=== PATIENT | male | born 1945 | race Caucasian/White ===

== ENCOUNTER 2020-06-27 10:05 | Outpatient (CLI) | payer MEDICARE, BC, SELFPAY ==
--- NOTE | 2020-06-25 10:35 | DI.RAD_ITS ---
EXAM: XR CLAVICLE RT CLINICAL HISTORY: POLYARTHRITIS M13.0, DEFORMITY STERNOCLAVICULAR JOINT TECHNIQUE: 2D digital imaging was performed. COMPARISON: CR XR WRIST LT COMPLETE from 06/25/2020 FINDINGS: BONES: No acute fracture is present. No bony destructive lesion is seen.There is spurring from the ti p of the acromion. JOINTS: No dislocation present. There is mild widening of the AC joint. Coracoclavicular distance i s normal. SOFT TISSUE: Normal IMPRESSION: AC joint widening. No bony erosions. DATA REPOSITORY: RADIATION DOSE DELIVERED:
--- NOTE | 2020-06-25 10:43 | DI.RAD_ITS ---
EXAM: XR WRIST LT COMPLETE CLINICAL HISTORY: POLYARTHRITIS M13.0. TECHNIQUE: 2D digital imaging was performed. COMPARISON: CR LEFT HAND COMPLETE from 10/22/2014 FINDINGS: BONES: No acute fracture is present. No bony destructive lesion is seen. JOINTS: There is severe narrowing of the radiocarpal joint. Sub subchondral cysts are noted in the s caphoid and lunate.. Degenerative changes are also seen at the 1st carpal metacarpal joint. SOFT TISSUE: There is marked posterior soft tissue swelling at the level of the carpal region. 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 DATA REPOSITORY: RADIATION DOSE DELIVERED:
== END 2020-06-27 10:25 ==
PROVIDERS: PCP Family Medicine; Visit Provider Family Medicine
DX: M19.032 Primary osteoarthritis, left wrist (principal); M18.9 Osteoarthritis of first carpometacarpal joint, unspecified; M95.8 Other specified acquired deformities of musculoskeletal system
CPT/HCPCS: 73000; 73110

== ENCOUNTER → 2020-09-03 14:54 | Outpatient (BNVA) | payer MEDICARE, BC, SELFPAY | PROVIDERS: PCP Family Medicine; Referring Provider Family Medicine; Visit Provider Student in an Organized Health Care Education/Training Program | DX: M18.12 Unilateral primary osteoarthritis of first carpometacarpal joint, left hand (principal); M19.132 Post-traumatic osteoarthritis, left wrist | CPT/HCPCS: 99203 ==

== ENCOUNTER 2020-10-25 10:49 | Outpatient (REF) | payer MEDICARE, BC, SELFPAY ==
--- NOTE | 2020-10-25 10:10 | PAPNONF_PTH ---
PATIENT: Stephan Schrader LOC: [facility] U#:[id number] AGE/SX: 75/M ROOM: RE10/25/[address]: Onesimo Edward MD : 1945 BED: DIS: 10/25/2020 SPEC #: [id number] RECD: 10/25/20 18:05 STATUS: ALEXANDRE REQ #: [id number] MARTIN: 10/25/20 10:[address]: Onesimo Edward DEPT: [facility] Cytology RECD BY: Mae Paiz ENTERED: 10/25/20 18:05 SP TYPE: ROSEMARIE GARDUNO DR: Stephanie Reyna Tissues: 1 - BODY FLUID CYTO-FINE NEEDLE ASPIRATE-[facility] Procedures: BODY FLUID CYTO-FINE NEEDLE ASPIRATE-[facility] Comments: [id number]
== END 2020-10-25 10:50 | disposition home or self-care (01) ==
LOC: LBN 10:49
PROVIDERS: PCP Family Medicine; Visit Provider Otolaryngology
DX: K11.8 Other diseases of salivary glands (principal)
CPT/HCPCS: 88104

== ENCOUNTER 2020-11-08 02:36 | Outpatient (CLI) | payer MEDICARE, BC, SELFPAY ==
--- NOTE | 2020-11-08 | DI.US_ITS ---
EXAM: US SOFT TISSUE HEAD OR NECK CLINICAL HISTORY: MASS RT PAROTID GLAND, K11.8. TECHNIQUE: Ultrasound was performed using standard protocol. COMPARISON: No exams were available for comparison FINDINGS: Sonographic assessment utilizing grayscale and color Doppler imaging was performed and targeted to th e area of clinical concern. There is a 2.3 x 1.2 x 1.7 cm complex cystic lesion within the right parotid gland. The lesion conta ins internal septations in the nodular solid component along the wall which measures 0.7 x 0.4 cm. T here does appear to be a minimal amount of internal blood flow in the solid component. Several sonog raphically benign-appearing lymph nodes are seen within the parotid gland. The largest measures 1 x 0.5 x 0.7 cm. IMPRESSION: 2.3 x 1.2 x 1.7 cm complex cystic lesion in the right parotid gland. A CT scan of the neck with cont rast is recommended for further evaluation. DATA REPOSITORY:
== END 2020-11-08 02:56 ==
PROVIDERS: PCP Family Medicine; Visit Provider Otolaryngology
DX: K11.8 Other diseases of salivary glands (principal)
CPT/HCPCS: 76536

== ENCOUNTER 2021-08-19 11:15 | Outpatient (CLI) | payer MEDICARE, BC, SELFPAY ==
--- NOTE | 2021-08-19 11:00 | DI.RAD_ITS ---
Exam(s) XR KNEE RT 1V EXAM: XR KNEE RT 1V CLINICAL HISTORY: preop. TECHNIQUE: 2D digital imaging was performed. COMPARISON: No exams were available for comparison FINDINGS: No fracture evident on this lateral view. Fxit-fz-[id number] narrowing of the medial compartment noted. S mall joint effusion evident. Bone density otherwise normal. IMPRESSION: DATA REPOSITORY: RADIATION DOSE DELIVERED:
--- NOTE | 2021-08-19 11:00 | DI.RAD_ITS ---
Exam(s) XR STANDING ALIGNMENT EXAM: XR STANDING ALIGNMENT CLINICAL HISTORY: arthritis right knee. TECHNIQUE: 2D digital imaging was performed. COMPARISON: No exams were available for comparison FINDINGS: There is advanced narrowing of the medial compartment of the right knee with [id number]-[id number] narrowing. Relative preservation of the lateral compartment. Opposite-left knee appears unremarkable as do the hips and ankles. No osseous lesions. Bone density is age-appropriate. IMPRESSION: Advanced narrowing of the medial compartment of the right knee. DATA REPOSITORY: RADIATION DOSE DELIVERED:
== END 2021-08-19 11:16 | disposition home or self-care (01) ==
LOC: DIORS 11:15
PROVIDERS: PCP Family Medicine; Referring Provider Family Medicine; Visit Provider Student in an Organized Health Care Education/Training Program
DX: M17.11 Unilateral primary osteoarthritis, right knee (principal)
CPT/HCPCS: 99214; 73560; 77073

== ENCOUNTER → 2021-08-26 13:32 | Outpatient (BNVA) | payer MEDICARE, BC, SELFPAY | PROVIDERS: PCP Family Medicine; Referring Provider Family Medicine; Visit Provider Student in an Organized Health Care Education/Training Program | DX: R69 Illness, unspecified (principal); M17.11 Unilateral primary osteoarthritis, right knee | CPT/HCPCS: 20610; J1040 ==

== ENCOUNTER → 2021-11-27 12:47 | Outpatient (BNVA) | payer MEDICARE, BC, SELFPAY | PROVIDERS: PCP Family Medicine; Referring Provider Family Medicine | DX: M17.11 Unilateral primary osteoarthritis, right knee (principal); M70.52 Other bursitis of knee, left knee ==

== ENCOUNTER 2021-12-02 03:01 | Outpatient (CLI) | payer MEDICARE, BC, SELFPAY ==
[2021-12-02 10:36] LABS: Source Nasal/Nares
[2021-12-02 13:07] LABS: COVID-19 PCR Negative (Negative)
== END 2021-12-02 03:02 | disposition home or self-care (01) ==
LOC: LBO 03:02
PROVIDERS: PCP Family Medicine; Visit Provider Student in an Organized Health Care Education/Training Program
DX: Z20.822 Contact with and (suspected) exposure to COVID-19 (principal); Z01.818 Encounter for other preprocedural examination
CPT/HCPCS: 36415; 80048; 85027; 87635; U0005

== ENCOUNTER 2021-12-02 03:40 | Outpatient (CLI) | payer MEDICARE, BC, SELFPAY ==
[2021-12-02 09:06] LABS: HCT 43.3 % (40.0-50.0); HGB 14.2 g/dL (13.5-17.5); MCH 30.7 pg (27.0-33.0); MCHC 32.8 % (32.0-36.0); MCV 93.7 fL (80-95); MPV 8.3 fL (8.0-11.0); Platelet Count 208 10^3/uL (130-400); RBC 4.62 10^6/uL (4.36-5.78); RDW 12.7 % (11.8-14.1); RDW-SD 43.6 fL; WBC 5.96 10^3/uL (4.4-10.8)
[2021-12-02 10:01] LABS: Anion Gap 4.4 mmol/L (3-11); BUN 18 mg/dL (7-18); CO2 28.6 mmol/L (21.0-32.0); CREATININE 0.9 mg/dL (0.70-1.30); Calcium 8.9 mg/dL (8.5-10.1); Chloride 107 mmol/L (98-107); Glucose 86 mg/dL (74-106); Potassium 4.6 mmol/L (3.5-5.1); Sodium 140 mmol/L (136-145)
== END 2021-12-02 03:41 | disposition home or self-care (01) ==
LOC: LBO 03:41
PROVIDERS: PCP Family Medicine; Visit Provider Student in an Organized Health Care Education/Training Program
DX: M25.561 Pain in right knee (principal); M17.11 Unilateral primary osteoarthritis, right knee; Z01.818 Encounter for other preprocedural examination; Z01.812 Encounter for preprocedural laboratory examination
CPT/HCPCS: 36415; 80048; 85027

== ENCOUNTER 2021-12-04 07:30 | Day surgery (SDC) | payer MEDICARE, BC, SELFPAY ==
[2021-12-04] VITALS (9 sets, daily range): BP systolic 102–151; BP diastolic 58–87; PULSE 52–68; RESP 13–18; TEMP 36.1–36.9; O2SAT 95–100; BMI 25.5
--- NOTE | 2021-12-04 07:33 | PDOC.DSDIS_ITS ---
Discharge Plan Disposition Patient Disposition: HOME Condition: Good Discharge Details Reason For Visit: R TKA Attending Provider: Simón Santiago Primary Care Provider: Stephanie eRyna Home Meds and New Rx's Prescriptions: New celecoxib 200 mg capsule 200 mg PO BID Qty: 60 0RF aspirin 81 mg tablet,delayed release (DR/EC) 81 mg PO BID Qty: 60 0RF acetaminophen 500 mg tablet 1,000 mg PO TID Qty: 90 3RF pantoprazole 40 mg tablet,delayed release (DR/EC) 40 mg PO DAILY Qty: 30 0RF oxycodone 5 mg tablet 5 mg PO Q4H MDD 6 tabs PRN (Reason: pain) Qty: 20 0RF Continued tamsulosin [Flomax] 0.4 mg capsule 0.4 mg PO BID 0RF Discharge Instructions Additional Instructions: Total Knee Discharge Instructions Activity: The most important activity is to walk. You should try to take short walks a few times a day. It is important that when resting you work on keeping the knee straight. Avoid putting a pillow behind the knee as this will encourage flexion. Work on range of motion exercises as provided by Physical Therapy. If you have the [employer] Water bike coming, this will be your primary tool for exercise after the knee replacement. You should use it and follow the directions for the knee. Utilize the other exercises sparingly based on your symptoms. - Start outpatient physical therapy within 2 weeks. - You should wear the DELICIA hose on both legs for 2 weeks. You may remove these at night. You may also use any compression sock in place of the DELICIA hose. - Utilize [employer] to review exercises, see videos on exercises and o btain basic information pertaining to your surgery and your recovery. Dressing: Remove the Stevie wrap by 2 days after your surgery and put on the DELICIA stocking given to you from the hospital. Keep the surgical dressing (underneath the STEVIE wrap) in place for at least one week. After the first week it may be removed and replaced with light gauze and tape or nothing. The wound and dressing may get wet after 3 days but avoid soaking the dressing or otherwise it will need to be changed. Many people prefer covering the dressing with cling wrap (saran wrap) to minimize it from getting soaked. If it gets wet, just pat dry. If it starts to peel off then it will need to be changed. Medications: - You should take Tylenol and anti-inflammatory Celebrex as your primary pain control medications. If the Celebrex is too expensive or not covered, please call the office for another alternative (Advil/Ibuprofen or Naproxen/Aleve) - You have been prescribed a stronger pain medication Oxycodone for breakthrough pain, take as needed as prescribed. - You have also been prescribed a stomach acid reduction agent Pantoprozole to help reduce stomach acid and reflux. - You will be taking [Aspirin 81mg twice a day] for DVT prevention unless instructed otherwise. - If you have constipation you should take Colace or Miralax (both [id number]). It takes most people 3-4 days to have a bowel movement. Follow-up: 2 weeks If you have any acute concerns or questions, please do not hesitate to contact the office at [phone]. You may contact Dr. Santiago with any questions after hours through the hospital at [phone] or on his cell phone at [phone]. Referrals: Simón Santiago MD [ [facility] STAFF PHYSICIAN] - Equipment/Supplies: Walker Activity:: Activity as Tolerated Remove Dressings/Wound Care:: Do Not Remove Shower/Bathe:: 72 hours Diet:: As Tolerated
[2021-12-04] MEDS: Gabapentin 300 MG CAP PO (08:05)
[2021-12-04] MEDS: Celecoxib 200 MG CAP 400 MG PO (08:05)
[2021-12-04] MEDS: Acetaminophen 500 MG TAB 1000 MG PO (08:05)
--- NOTE | 2021-12-04 08:36 | W.ANESPRE ---
General Info Date of Service Date Performed: 12/04/21 Height: 5 ft 8 in Weight: 76.3 kg Body Mass Index (BMI): 25.5 Surgical Procedure: Operation Date: 12/04/21 10:40 Proposed Procedure Side Surgeon p Knee Total Arthroplasty Cementless CR Right Simón Santiago MD Meds Allergies and Home Medications Allergies Allergy/AdvReac Type Severity Reaction Status Date / Time sildenafil [From Viagra] AdvReac runny Verified 12/04/21 07:51 nose, watery eyes Home Medication Medication Instructions Recorded tamsulosin 0.4 mg capsule (Flomax) 0.4 mg PO BID 11/27/21 acetaminophen 500 mg tablet 1,000 mg PO TID #90 tab 12/04/21 aspirin 81 mg tablet,delayed 81 mg PO BID #60 tab 12/04/21 release celecoxib 200 mg capsule 200 mg PO BID #60 cap 12/04/21 oxycodone 5 mg tablet 5 mg PO Q4H PRN #20 tab MDD 6 tabs 12/04/21 pantoprazole 40 mg tablet,delayed 40 mg PO DAILY #30 tab 12/04/21 release Current Visit Medications: Current Medications Generic Name Dose Route Start Last Admin Trade Name Freq PRN Reason Stop Dose Admin Acetaminophen 1,000 mg 12/04/21 06:00 12/04/21 08:05 Acetaminophen 500 Mg Tab PO 12/04/21 16:00 1,000 mg PREOP JESS Administration Acetaminophen 1,000 mg 12/04/21 14:00 Acetaminophen 500 Mg Tab PO TID JESS Aspirin 81 mg 12/04/21 20:00 Aspirin E.C. 81 Mg Tabec PO BID JESS Celecoxib 400 mg 12/04/21 06:00 12/04/21 08:05 Celecoxib 200 Mg Cap PO 12/04/21 16:00 400 mg PREOP JESS Administration Celecoxib 200 mg 12/04/21 20:00 Celecoxib 200 Mg Cap PO BID JESS Docusate Sodium 100 mg 12/04/21 07:31 Docusate Sodium 100 Mg Cap PO BID PRN PRN Constipation Gabapentin 300 mg 12/04/21 06:00 12/04/21 08:05 Gabapentin 300 Mg Cap PO 12/04/21 16:00 300 mg PREOP JESS Administration Tranexamic Acid 1,000 mg/ 60 mls @ 360 mls/hr 12/04/21 06:00 Sodium Chloride IVPB 12/04/21 16:00 PREOP JESS Tranexamic Acid 1,000 mg/ 60 mls @ 360 mls/hr 12/04/21 06:00 Sodium Chloride IVPB 12/04/21 16:00 DIRECTED JESS Ringer's Solution 1,000 mls @ 80 mls/hr 12/04/21 06:00 IV 01/02/22 23:59 INFUSION JESS Cefazolin Sodium/Dextrose 2 gm in 50 mls @ 100 mls/hr 12/04/21 06:00 Ancef Duplex IVPB 01/02/22 23:59 PREOP JESS Cefazolin Sodium/Dextrose 1 gm in 50 mls @ 100 mls/hr 12/04/21 08:00 Ancef Duplex IVPB 12/05/21 00:29 Q8H JESS IV Miscellaneous Supplies 1 each 12/04/21 06:00 Iv Access IV 01/02/22 23:59 DIRECTED JESS Ondansetron HCl 4 mg 12/04/21 07:31 Ondansetron 4 Mg/2 Ml Vial IVP Q6H PRN PRN Nausea Oxycodone HCl 0 mg 12/04/21 07:31 Oxycodone 5 Mg Tab PO Q3H PRN PRN Pain Pantoprazole Sodium 40 mg 12/05/21 07:30 Pantoprazole 40 Mg Tabcr PO DAILY@0730 JESS Polyethylene Glycol 17 gm 12/04/21 07:31 Polyethylene Glycol 3350 17 Gm Packet PO BID PRN PRN Constipation Sodium Chloride 0 ml 12/04/21 06:00 Normal Saline Flush 10 Ml Syr IV 01/02/22 23:59 PRN PRN Sodium Chloride 0 ml 12/04/21 06:00 Normal Saline 10 Ml Vial IJ 01/02/22 23:59 DIRECTED PRN Sterile Water 0 ml 12/04/21 06:00 Water,Injection,Sterile 10 Ml Vial IJ 01/02/22 23:59 DIRECTED PRN PFSH Active Problems Active Problems: Problem Status Onset Code Pes anserinus bursitis of left knee M70.52 Hypertension I10 Osteoarthritis of right knee M17.11 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 Arthritis of carpometacarpal (CMC) joint of left thumb M18.12 Surgical History Surgical History History of dacryocystorhinostomy History of excision of mass Left face Tobacco Smoking/Tobacco Use Status: Never Alcohol Alcohol Intake: current Alcohol intake frequency: a few times a week Alcohol type: wine Substance Use Substance use: Never Substance use type: does not use Vital Signs and Lab Results Vital Signs Most Recent Vital Signs in EMR: Most Recent Vital Signs Temp Pulse Resp BP Pulse Ox 36.6 C 64 16 133/77 99 12/04/21 07:41 12/04/21 07:41 12/04/21 07:41 12/04/21 07:41 12/04/21 07:41 Lab Results Blood Type / Crossmatch: No Data to Display Complete Blood Count: White Blood Count 5.96 10^3/uL (4.4-10.8) 12/02/21 08:59 12/02/21 Red Blood Count 4.62 10^6/uL (4.36-5.78) 12/02/21 08:59 12/02/21 Hemoglobin 14.2 g/dL (13.5-17.5) 12/02/21 08:59 12/02/21 Hematocrit 43.3 % (40.0-50.0) 12/02/21 08:59 12/02/21 Platelet Count 208 10^3/uL (130-400) 12/02/21 08:59 12/02/21 Complete Metabolic Panel: Sodium Level 140 mmol/L (136-145) 12/02/21 08:59 12/02/21 Potassium Level 4.6 mmol/L (3.5-5.1) 12/02/21 08:59 12/02/21 Chloride Level 107 mmol/L (98-107) 12/02/21 08:59 12/02/21 Carbon Dioxide Level 28.6 mmol/L (21.0-32.0) 12/02/21 08:59 12/02/21 Blood Urea Nitrogen 18 mg/dL (7-18) 12/02/21 08:59 12/02/21 Creatinine 0.9 mg/dL (0.70-1.30) 12/02/21 08:59 12/02/21 Estimated GFR/1.73 m2 >= 60.00 (mL/min/1.73m2) 12/02/21 08:59 12/02/21 Calcium Level 8.9 mg/dL (8.5-10.1) 12/02/21 08:59 12/02/21 Glucose Level 86 mg/dL (74-106) 12/02/21 08:59 12/02/21 Liver Function Panel: No Data to Display Coagulation Panel: No Data to Display Cardiac Panel: No Data to Display Arterial Blood Gas: No Data to Display Venous Blood Gas: No Data to Display Pancreas Panel: No Data to Display Thyroid Panel: No Data to Display Infectious Disease: Coronavirus (COVID-19)(PCR) Negative (Negative) 12/02/21 09:13 12/02/21 Coronavirus 2019 Source Nasal/Nares 12/02/21 09:13 12/02/21 Blood Cultures: No Data to Display Toxicology Panel: No Data to Display Anesthesia Assessment and Plan Anesthesia History Personal History: No History of Anesthesia Complications Family History: No Family History of Anesthesia Complications Exercise Tolerance Exercise Tolerance: Metabolic Equivalents>4 Pertinent Negatives Pertinent Negatives: No Symptoms of GERD, No Major Cardiovascular Symptoms or Complaints, No Major Pulmonary Symptoms or Complaints and No History of CVA/TIA Cardiac & Pulmonary Exam Cardiac Exam: Normal S1/S2 Heart Sounds Pulmonary Exam: Clear Bilateral Breath Sounds Implantable Cardiac Device Does patient have a Pacemaker or an ICD?: No Airway Exam Known Difficult Airway: No Mallampati Class: 2 Mouth Opening: Normal (> 3cm) Thyromental Distance: Greater than 3 cm Neck Range of Motion: Full ROM Neck Circumference: Normal Teeth Condition: Normal Dentition ASA Classification ASA Score: ASA 2 Emergency Case?: No NPO Status NPO Status: NPO Clears >2 hours, Solids >8 hours Anesthesia Plan Resuscitation Status: Full Code Anesthesia Technique: Spinal Anesthesia Airway Planned: Natural Airway Pain Management: Surgeon and patient request nerve block Monitors Used: Standard Monitors
[2021-12-04] MEDS: Lactated Ringers 1,000 ML 80 ML IV (09:01)
--- NOTE | 2021-12-04 09:16 | W.ANESNERVE ---
Nerve Block Single Injection Procedure Date and Time Date Performed: 12/04/21 Procedure Start: 09:16 Location Where Procedure Performed Procedure Location: Day Surgery Unit Reason Performed: Postoperative Analgesia Requesting Provider: Simón Santiago Timeout Performed Timeout Performed: No Monitoring Used ECG, Blood Pressure and SpO2 Sterility Sterility: Hand Hygiene, Surgical Cap, Surgical Mask, Sterile Gloves, Eye Protection and Chlorhexidine Sedation Given During Procedure Sedation Given (Indicate Dose Given): Versed IV Dose:: 2mg Patient Mental Status Patient Mental Status: Sedate with meaningful communication Nerve Block 1st Nerve Block: Laterality: Right Block Type: Adductor Canal Needle / Catheter Used: 100mm SonoPlex II Local Anesthetic Bolus (Indicate Dose Given): Lidocaine used for local infiltration of skin, Injected in 3-5ml increments after negative blood aspiration and Bupivacaine 0.25% Dose:: 15cc Additives (Indicate Dose Given): None Ultrasound: Sterile probe cover and gel used Ultrasound Image Saved?: Yes Nerve Stimulator: Not Used Paresthesia: None Post Procedure Pain score (0-10): 0 Procedure Tolerated: No Complications and Patient tolerated well Procedure Outcome: Successful Performed By: Dong Matthew
[2021-12-04] MEDS: ceFAZolin 2 GM/50 ML BAG IVPB (10:28)
[2021-12-04] MEDS: Bupivacaine 0.25% Pres-Free 30 ML VIAL (11:01)
[2021-12-04] MEDS: Normal Saline 20 ML VIAL (11:02)
[2021-12-04] MEDS: Ketorolac 30 MG/ML VIAL (11:02)
--- NOTE | 2021-12-04 11:23 | W.ANESPOSTOP ---
Postoperative Evaluation Date, Time and Location Date Performed: 12/04/21 Time Performed: 11:23 Patient Location: Day Surgery Unit Vital Signs Most Recent Imported Vital Signs: Most Recent Vital Signs Temp Pulse Resp BP Pulse Ox 36.7 C 52 L 15 136/74 99 12/04/21 08:58 12/04/21 08:58 12/04/21 08:58 12/04/21 08:58 12/04/21 08:58 Most Recent Manually Entered Vital Signs: Adult Blood Pressure: 108/84 Heart Rate: 89 Respirations: 12 Oxygen Saturation (%): 96 Temperature (C): 36.5 C Pain Score (0-10 Scale): 0 Pain Score Most Recent Pain Score: Most Recent Pain Score Pain Level 0 12/04/21 07:41 Assessment Mental Status: Arousable with meaningful communication Airway and Respiratory Function: Patent airway with normal (patient baseline) respiratory exam Cardiovascular Function: Hemodynamically Stable Hydration Status: Adequately Hydrated Nausea & Vomiting: No Nausea or Vomiting Pain: Pt. Denies Any Pain Peripheral Nerve Block: Patient did not receive a nerve block
--- NOTE | 2021-12-04 12:57 | W.ANESPOSTOP ---
Postoperative Evaluation Date, Time and Location Date Performed: 12/04/21 Time Performed: 12:58 Patient Location: Day Surgery Unit Vital Signs Most Recent Imported Vital Signs: Most Recent Vital Signs Temp Pulse Resp BP Pulse Ox 36.1 C L 53 L 18 135/87 97 12/04/21 12:47 12/04/21 12:47 12/04/21 12:47 12/04/21 12:47 12/04/21 12:47 Pain Score Most Recent Pain Score: Most Recent Pain Score Pain Level 0 12/04/21 12:47 Assessment Mental Status: Awake (Alert & Oriented to Patient Baseline) Airway and Respiratory Function: Patent airway with normal (patient baseline) respiratory exam Cardiovascular Function: Hemodynamically Stable Hydration Status: Adequately Hydrated Nausea & Vomiting: No Nausea or Vomiting Pain: Pt. Denies Any Pain Peripheral Nerve Block: Regional nerve block not resolved at time of post operative discharge
--- NOTE | 2021-12-04 13:59 | PT.INIE ---
Date of service: 12/04/21 Time of Service: 13:59 PT Notes Visit Reasons: R TKA Physical Therapy Day Surgery Initial Evaluation Date: 12/04/2021 Referring Doctor: DOROTEO Tadeo PT Orders: PT CONSULT: Eval/treat Precautions: WBAT on right LE with AD. Patient Profile/Admitting Diagnosis: Stephan is a 76-year-old male with primary unilateral osteoarthritis of the right knee and is status post right total knee arthroplasty on postoperative day 0. PMHX: Surgical History?(Updated 11/27/21 @ 13:19 by Juliette Yeboah) History of dacryocystorhinostomy History of excision of mass Left face Social History/Home Situation: Lives with in a private home with 3 steps to enter and rails on both sides that are far apart. Has a flight of steps to the second floor of the house where his bedroom is. Independent with all aspects of ADLs prior to surgery. Equipment Owned/DME: None Subjective: Agreeable to PT consult. Reports 5/10 pain in the right knee that subsided with weight bearing. Objective: General Observation: Stevie wraps to right LE. Cryocuff to right knee. TEDS to left leg. Mental Status: Alert and oriented x4 Pain: 5/10 pain in the right knee at rest ROM: Right Lower Extremity: Hip flexion WFL. Hip abduction WFL. Knee flexion 10 degrees to 100 degrees. Knee extension -10 degrees Ankle dorsiflexion WFL. Ankle plantarflexion WFL. Left Lower Extremity: Hip flexion WFL. Hip abduction WFL. Knee flexion WFL. Ankle dorsiflexion WFL. Ankle plantarflexion WFL. Strength: Right Lower Extremity: Hip flexors 5/5. Hip abductors 5/5. Knee flexors 3-/5. Knee extensors 3-/5. Ankle dorsiflexors 5/5. Ankle plantarflexors 5/5. Left Lower Extremity:Hip flexors 5/5. Hip abductors 5/5. Knee flexors 5/5. Knee extensors 5/5. Ankle dorsiflexors 5/5. Ankle plantarflexors 5/5. Sensation: Intact as to pain and light pressure in bilateral lower extremity Bed Mobility/Transfers: Supine to sit supervision Sit to stand contact-guard assist Stand to sit standby assist Bed to chair standby assist Gait: 150 feet of level surface ambulation using front wheeled walker with step-up to gait pattern requiring contact-guard assist of PT and wheelchair follow of TECHNICAL PROGRAM MANAGER Leann for safety. Reports feeling much better with R knee feeling less stiff with ambulation activity. Denies headache, and chest pain. Did report some mild lightheadedness that did not limit ambulation distance. Good quad activation. Stairs: Down 24 x 4 inch steps and 16 x 6 inch steps while holding onto rail on the right side and and using a single-point cane on the other side for support. Required moderate verbal cueing for correct technique. was included in the education and training in order to ensure patient compliance mastery. Balance: Static Sitting: Normal Dynamic Sitting: Normal Static Standing: Fair Dynamic Standing: Fair Special Tests: Mobility Limitations Standardized Measure [facility] 6 clicks Basic Mobility Inpatient Short Form: Raw Score: 21 CMS Score: 29% deficit Informed Consent/Education: Patient instructed in purpose of PT consult. Education and training on initial set of exercises that can be done at home have been completed with patient with reference to the downloadable My [employer] ingris. Assessment: Stephan requires the use of a front-wheel walker for all for all mobility ADL performance on level surfaces and a single cane for the stairs. Patient presents with clinical signs and symptoms consistent with current/admitting diagnoses that have resulted to mobility limitations, gait instability, generalized weakness, and impairment of motor control as demonstrated by the following impairment level findings: 1. Decreased strength to right knee major muscle groups 2. Impaired standing balance 3. Limitation of joint range of motion in right knee Impairments are contributing to the following functional limitations: 1. Inability to safely ambulate without assistive device 2. Increase completion time for mobility ADL performance 3. Increased fall risk Patient is assessed as a 18617 moderate 76 complexity based on the following: History: -year-old male with impairment level findings, functional limitations, and past medical history as indicated above Examination: Demonstrable impairment in strength, balance, and mobility level with underlying impairments and functional limitations as documented above Presentation: Evolving Decision Makin moderate complexity Goals: N/A. PT evaluation and 1-2 treatment sessions only for functional mobility training using recommended AD and for HEP instruction. Plan of Care/Treatment Plan: N/A. PT evaluation and 1-2 treatment session only for functional mobility training using recommended AD and for HEP instruction. DISCHARGE RECOMMENDATIONS: [] Home with no services [] [] Home with services [specify] [X] Home with outpatient PT. Home when medically cleared by orthopedic surgeon. Will benefit from outpatient services PT services in order to facilitate return to independent community ambulation and full ADL performance without an assistive device. [] SNF for continued rehabilitation [] [] Jail Care [] [] SNF versus LTC based on ability to participate and progress [] TREATMENT CODE/TIME: 79153 x 20 minutes, 51553 x 21 minutes beginning at 13:59 PM. Thank you for the opportunity to participate in the care of this patient. Bernie Mejia PT, DPT, CLT [facility] [place], [place]
--- NOTE | 2021-12-04 15:06 | ROE_ITS ---
Date of service: 12/04/21 Time of Service: 12:10 Operative Note Operative Note DATE OF PROCEDURE: 12/04/21 PRE-OP DIAGNOSIS: Right Knee Osteoarthritis POST-OP DIAGNOSIS: same PROCEDURE: Right Total Knee Replacement SURGEON: Simón Santiago [employer] TECH: Nacho Vivas ANESTHESIA TYPE: Spinal Refer to Anesthesia Record ESTIMATED BLOOD LOSS: 300 PATHOLOGY: none sent TOURNIQUET TIME: 0 COMPLICATIONS: None Patient was transported to: PACU Patient's condition: stable Implants: 1. Depuy Attune Cementless Cruciate Retaining Femoral Component, Size 7 2. Depuy Attune Cementless Rotating Platform Tibial Component, Size 6 3. Depuy Attune 7x6 CR/RP Poly 4. Depuy Attune Patellar Component, Size 35 Indications: I have seen Imtiaz in clinic for symptoms of knee arthritis, confirmed with radiographic findings. He has exhausted nonoperative methods and was having significant limitations in daily function and desired better function and less pain. I discussed the technical details of a knee replacement. I explained the risks of the procedure to include, but not limited to, bleeding, infection, pain, stiffness, fracture, damage to nerves and vessels, damage to muscles and tendons, loosening, need for repeat procedure, blood clot and cardiopulmonary demise. Despite these risks, Imtiaz elected to proceed. Findings: There was notable arthritis about the medial aspect of the knee primarily as well as the lateral femur. Procedure Description: Imtiaz was greeted in the preoperative holding area where the correct side was identified and marked. The consent was reviewed with the patient and signed. The history and physical was updated. All questions were answered. Preoperative medications were administered: Acetaminophen 1000mg, Celebrex 400mg, and Gabapentin 300mg. An adductor canal block was then administered by the anesthesia team in the PACU. Imtiaz was taken back to the operating room. A spinal anesthestic was then administered. The patient was placed into the supine position on the operating room table. A nonsterile tourniquet was placed high onto the leg but only used for cementing. Posts were placed for positioning during the procedure. All bony prominences were well padded. Prophylactic antibiotics in the form of Cefazolin were administered. 1g of Tranxemic Acid was given intravenously within 30 minutes of incision. The right leg was then prepped with Chloraprep and draped in a standard fashion with impervious stockinette. A second prep with Chloraprep was performed prior to application of Iodine impregnated skin protection. A timeout to confirm correct identity, side and site, procedure, allergies, anesthesia, and medical concerns was performed. With the knee in some flexion, a midline incision was made overlying the knee. Full thickness skin flaps were raised once the extensor mechanism was encountered. These were raised medially and laterally. Any bleeding was controlled with electrocautery. Once the extensor mechanism was fully exposed, a medial parapatellar arthrotomy was performed in a flexed position. All bleeding from the arthrotomy and the geniculate arteries was coagulated. A medial subperiosteal peel was performed with electrocautery to the midcoronal plane. The fat pad was removed while keeping the patellar tendon protected. The anterior distal femur synovium was removed for later visualization. The ACL and PCL were resected and the anterior horn of the lateral meniscus was transected. The knee was then flexed with the patella everted. Large osteophytes from the tibia were removed. Large osteophytes from the femur were removed. Using a step drill, and based on preoperative templating, the femoral canal was entered. This was done with a step drill without any difficulty. The intramedullary distal femoral cut guide was inserted, set to a 6 degree valgus cut and 9mm cut thickness. The distal femoral cut guide was then held in position and pinned. With the soft tissues protected, the distal cut was performed. This was passed over a few times to ensure a planar cut. I then turned attention to the tibia. The extramedullary guide was placed onto the leg. The distal aspect was slid medial to adjust for position of center of ankle and stay in line with shaft of the tibia. Approximately 3-5 degrees of posterior slope was kept in the proximal cutting guide. The center of the guide was aligned with the PCL. The stylus was used to assess cut thickness. The medial side, most involved side, was set for a 3mm cut. This was then held in position and pinned into place with 2 additional pins and a cross pin for stability. The medial and lateral collateral ligaments were protected and the cut was performed. With this completed, it was assessed and noted to be of appropriate dimensions. The guide was removed. A spacer block was inserted and the knee was brought into extension. The 6mm spacer block provided full extension, without hyperextension and with stability of both the medial and lateral collateral ligaments was assessed. The pins from the femur and the tibia were then removed. The distal femur was then sized. The anterior stylus was placed onto the lateral ridge of the anterior femur. This indicated a size 7 femur. The external rotation of the guide was adjusted to 5 degrees to match the epicondylar axis, perpendicular to [place]?s line. The 4-in-1 cutting guide was the placed. The posterior medial femur cut was evaluated and appeared of good thickness. The spacer block was inserted underneath the cutting guide and stability was confirmed in 90 degrees of flexion. An xenia wing was used to confirm appropriate position of the anterior cut to avoid notching. This cutting guide was ensured to be flush on the cut surface and then pinned into place with headed pins. While protecting the soft tissues, quad tendon, and collateral ligaments, the anterior and posterior cuts were performed with a saw. The central two pins were removed and the posterior and anterior chamfers were cut next. The notch-cutting guide was placed. This was pinned to lateralize the femoral component as much as possible while keeping it flush on the cut surface. This was then pinned into position. A reciprocating saw was used to make the notch cut. A rasp smoothed the cut surfaces. The medial and lateral menisci were removed. A trial femoral component was then inserted, impacted down to the cut surfaces, and the lug holes were drilled. A provisional trial tibial component was placed and the knee was brought through range of motion. There was noted to be excellent extension and flexion. There was no significant instability. The patella was tracking without thumbs. A size 6mm polyethylene component provided the best range of motion and stability with less than 2mm gapping with medial and lateral stress and full extension without significant hyperextension. The tibial cut surface was fully exposed. The tibia was then sized as a 6. The tibia had been previously marked during trialing to correspond to the center of the tibial component to help with rotation. The trial was aligned to this nacho, approximately rotated to the medial 1/3rd of the tibial tubercle. The trial was pinned into place. The tibia was prepared with a reamer and a keel punch and lug holes. The knee was then brought into extension and the patella was measured as 25mm. Using the patellar clamp and cut guide, this was resected to a flat surface with at least 13mm of thickness remaining. The size 35 patella fit the best. This was oriented and then clamped into position. The lugs were drilled. The trial components were removed. The final components were opened on the back table. The periosteal and capsular tissues, especially posteriorly, around the knee were then systematically injected with a periarticular cocktail consisting of 50cc 0.25% Marcaine, 30mg Ketorolac, 20cc of Exparal and 50cc of injectable saline. The knee was thoroughly irrigated with a pulse lavage and dried. Irrisept was also used to irrigate the tissues. On the back table, with the implants opened, the cement was mixed. One batch of high viscosity cement was prepared with vacuum assistance. After the cement was ready a small amount was placed on the cut surface of the patella and the patellar button was clamped into position and held. While the cement was hardening, the cementless knee components were placed. Starting with the tibial component, the tibia was subluxed anteriorly and the lug holes of the component were lined up. The tibia was then impacted with an impactor and mallet until the tibial component was in contact with the tibia. The final polyethylene component was inserted. Then, the femoral component was inserted. The lug holes were aligned and the component was impacted into position. The knee was irrigated with Irrisept chlorhexadine solution. This was allowed to sit in the knee for 3 minutes. After the cement had finally cured, approximately 15min, the clamp was removed from the patella and the knee was taken through range of motion. The patella was tracking with a no-thumbs technique. The capsule was then reapproximated with a No. 1 Vicryl at multiple locations. The capsule was finally closed with a No. 2 Stratafix, barbed suture. The second dosing of 1g TXA was started. Deep tissues were then reapproximated with 0 Vicryl and 2-0 Vicryl. The skin was closed with a running 3-0 Monocryl in a subcuticular fashion. This was reinforced with skin glue. A Mepilex silver dressing was applied along with a [id number] DEEPTI wrap. A CryoCuff was applied. Imtiaz was transferred to the hospital bed without difficulty an suffering no apparent complication. Imtiaz has a good prognosis. Physical therapy will start today and without restrictions, weight-bearing as tolerated. Aspirin 81mg BID will be used for DVT prophylaxis.
== END 2021-12-04 15:18 | disposition home or self-care (01) ==
PROVIDERS: PCP Family Medicine; Visit Provider Student in an Organized Health Care Education/Training Program
PROC: (CPT 27447; principal; 2021-12-04 10:30)
DX: M17.11 Unilateral primary osteoarthritis, right knee (principal); I10 Essential (primary) hypertension
CPT/HCPCS: 27447; 76942; 97162; 97530; J0690; J1885; J2250; J2405

== ENCOUNTER 2021-12-19 10:14 | Outpatient (CLI) | payer MEDICARE, BC, SELFPAY ==
--- NOTE | 2021-12-19 10:10 | DI.RAD_ITS ---
Exam(s) XR STANDING ALIGNMENT XR KNEE RT 1V EXAM: XR STANDING ALIGNMENT CLINICAL HISTORY: R TKR f/u TECHNIQUE: COMPARISON: CR XR STANDING ALIGNMENT from 08/19/2021 CR XR KNEE RT 1V from 12/19/2021 FINDINGS: Standing alignment views were obtained. Lateral view of the right knee was also obtained. There is a total knee joint replacement position on the right. The components appear well seated. IMPRESSION: RADIATION DOSE DELIVERED: Total DLP
== END 2021-12-19 10:15 | disposition home or self-care (01) ==
LOC: DIORS 10:14
PROVIDERS: PCP Family Medicine; Referring Provider Family Medicine; Visit Provider Student in an Organized Health Care Education/Training Program
DX: Z96.651 Presence of right artificial knee joint (principal); Z47.1 Aftercare following joint replacement surgery
CPT/HCPCS: 73560; 77073

== ENCOUNTER → 2022-01-16 08:59 | Outpatient (BNVA) | payer MEDICARE, BC, SELFPAY | PROVIDERS: PCP Family Medicine; Referring Provider Family Medicine; Visit Provider Physician Assistant Surgical | DX: Z96.651 Presence of right artificial knee joint (principal) ==

== ENCOUNTER 2022-02-19 15:24 | Outpatient (REF) | payer MEDICARE, BC, SELFPAY ==
[2022-02-20 10:56] LABS: Lyme Ab w Rflx to Lyme Confirm Negative (Negative)
[2022-02-22 14:26] LABS: Anaplasma phagocytophilum Negative (Negative); B. miyamotoi PCR Negative (Negative); Babesia divergens/MO-1 Negative (Negative); Babesia duncani Negative (Negative); Babesia microti Negative (Negative); Ehrlichia chaffeensis Negative (Negative); Ehrlichia ewingii/canis Negative (Negative); Ehrlichia muris eauclairensis Negative (Negative)
== END 2022-02-19 15:25 | disposition home or self-care (01) ==
LOC: LBN 15:24
PROVIDERS: PCP Family Medicine; Visit Provider Physician Assistant Medical
DX: R21 Rash and other nonspecific skin eruption (principal)
CPT/HCPCS: 87798; 86618

== ENCOUNTER → 2022-02-24 08:12 | Outpatient (BNVA) | payer MEDICARE, BC, SELFPAY | PROVIDERS: PCP Family Medicine; Referring Provider Family Medicine; Visit Provider Student in an Organized Health Care Education/Training Program | DX: Z47.1 Aftercare following joint replacement surgery (principal); Z96.651 Presence of right artificial knee joint ==

== ENCOUNTER → 2022-03-28 09:07 | Outpatient (BNVA) | payer MEDICARE, BC, SELFPAY | PROVIDERS: PCP Family Medicine; Referring Provider Family Medicine; Visit Provider Student in an Organized Health Care Education/Training Program | DX: Z47.1 Aftercare following joint replacement surgery (principal); Z96.651 Presence of right artificial knee joint | CPT/HCPCS: 99212 ==

== ENCOUNTER 2022-12-05 10:32 | Outpatient (CLI) | payer MEDICARE, BC, SELFPAY ==
--- NOTE | 2022-12-05 09:27 | DI.RAD_ITS ---
Exam(s) XR KNEE RT 2V AP,LAT EXAM: XR KNEE RT 2V AP,LAT INDICATION: annual f/u R TKA. COMPARISON: CR XR KNEE RT 1V from 12/19/2021 TECHNIQUE: 2D digital imaging was performed. Two views. FINDINGS: There has been no change in the alignment of the total knee prosthesis. No abnormal bony lucencies. Decreased soft tissue swelling. DATA REPOSITORY: RADIATION DOSE DELIVERED:
--- NOTE | 2022-12-05 09:30 | DI.RAD_ITS ---
Exam(s) XR LUMBAR SPINE AP, LAT EXAM: XR LUMBAR SPINE AP, LAT CLINICAL HISTORY: LOW BACK PAIN. TECHNIQUE: 2D digital imaging was performed. Five views. COMPARISON: No exams were available for comparison FINDINGS: BONES: No fracture or destructive lesion. Vertebral body heights are maintained. Moderate facet hype rtrophy identified L4-5 and L5-S1.. DISKS: Moderate to severe narrowing of the L1-2 disc space with endplate osteophytes. Mild narrowing of the L 2 3 and L3-4 disc spaces. Severe narrowing of the L4-5 disc space and moderate narrowing o f the L5-S1 disc space. ALIGNMENT: Lumbar spinal alignment is within normal limits. No scoliosis. SOFT TISSUE: Aortic calcified and normal in diameter. IMPRESSION: Multilevel degenerative changes greatest at L4-5. DATA REPOSITORY: RADIATION DOSE DELIVERED:
== END 2022-12-05 10:33 | disposition home or self-care (01) ==
LOC: DIORS 10:32
PROVIDERS: PCP Family Medicine; Referring Provider Family Medicine; Visit Provider Student in an Organized Health Care Education/Training Program
DX: Z96.651 Presence of right artificial knee joint (principal); M25.661 Stiffness of right knee, not elsewhere classified; M47.816 Spondylosis without myelopathy or radiculopathy, lumbar region; M51.36 Other intervertebral disc degeneration, lumbar region
CPT/HCPCS: 99213; 72100; 73560

== ENCOUNTER 2023-02-09 10:05 | Outpatient (CLI) | payer MEDICARE, BC, SELFPAY ==
[2023-02-09 10:16] LABS: ALT 28 U/L (16-63); AST 26 U/L (15-37); Albumin 3.5 g/dL (3.4-5.0); Alkaline Phosphatase 77 U/L (46-116); Anion Gap 4.4 mmol/L (3-11); BUN 15 mg/dL (7-18); Bilirubin, Total 0.7 mg/dL (0.2-1.0); CO2 29.6 mmol/L (21.0-32.0); CREATININE 0.8 mg/dL (0.70-1.30); Calcium 8.8 mg/dL (8.5-10.1); Chloride 106 mmol/L (98-107); Estimated GFR 91.15 (mL/min/1.73m2); Glucose 97 mg/dL (74-106); Potassium 4.2 mmol/L (3.5-5.1); Sodium 140 mmol/L (136-145); Total Protein 6.9 g/dL (6.4-8.2)
== END 2023-02-09 10:06 | disposition home or self-care (01) ==
LOC: LBO 10:06
PROVIDERS: PCP Family Medicine; Visit Provider Family Medicine
DX: I10 Essential (primary) hypertension (principal)
CPT/HCPCS: 36415; 80053

== ENCOUNTER 2023-03-05 01:38 | Outpatient (CLI) | payer MEDICARE, BC, SELFPAY ==
--- NOTE | 2023-03-05 07:45 | DI.MRI_ITS ---
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 TECHNIQUE: Multiplanar multisequence MRI of the Lumbar spine was performed. COMPARISON: CR XR LUMBAR SPINE AP, LAT from 12/05/2022 FINDINGS: Bones: The last intervertebral disc space is designated the L5/S1 level for the numbering purpose of this examination. There is partial sacralization of the L5 vertebral body. The vertebral body heigh ts are well maintained. Alignment is satisfactory. No suspicious marrow lesions. Cord: The conus tip ends at the T12/L1 level. It is of normal size and signal intensity. T12-L1: No disc herniations or bulges are present. No central spinal canal or neural foraminal stenos is. L1-2: Moderate loss of disc height. Small endplate osteophytes. Mild disc bulging. No central spin al stenosis. Mild bilateral neural foraminal narrowing. L2-3: Mild loss of disc height. Small endplate osteophytes. No central spinal canal stenosis.Mild bilateral neural foraminal narrowing. L3-4: Mild loss of disc height. Small endplate osteophytes and mild disc bulging cause [id number] ate bilateral neural foraminal narrowing. No central spinal canal stenosis. L4-5: Severe loss of disc height. Endplate osteophytes eccentric toward the left. Degenerative sign al changes in the endplates. Facet degenerative changes. Severe bilateral neural foraminal narrowin g, greater on the left. No central spinal canal stenosis. L5-S1: Rudimentary disc. No disc herniation. No central spinal canal or neural foraminal stenosis. The visualized SI joints and sacrum are well maintained. Soft tissues: The paraspinal soft tissues are unremarkable. IMPRESSION: Degenerative disc changes noted at multiple levels, greatest at L4-5, causing severe left greater kev n right bilateral neural foraminal narrowing. No disc herniation at any level. No central canal stenosis. DATA REPOSITORY:
== END 2023-03-05 01:58 ==
LOC: DI 01:38
PROVIDERS: PCP Family Medicine; Visit Provider Family Medicine
DX: G96.9 Disorder of central nervous system, unspecified (principal); M51.36 Other intervertebral disc degeneration, lumbar region
CPT/HCPCS: 72148

== ENCOUNTER → 2023-07-21 00:42 | Outpatient (CLI) | payer MEDICARE, BC, SELFPAY ==
--- NOTE | 2023-07-21 | DI.CT_ITS ---
Exam(s) CT NECK W EXAM: CT NECK W CLINICAL HISTORY: NECK MASS, NONPULSATILE, F/U RT PAROTID MASS, C07,. TECHNIQUE: Imaging Protocol: Axial computed tomography images with coronal and sagittal reformatted images were created and reviewed CONTRAST MATERIAL: Intravenous: Omnipaque 350 Contrast volume:100 ml contrast COMPARISON: US US SOFT TISSUE HEAD OR NECK from 11/08/2020 FINDINGS: Parotids: Left parotid has a normal appearance. Apparent resection of right parotid. Surgical clips present. No visible mass. Submandibular glands: Normal. Thyroid gland: Normal. Lymph nodes: There are scattered lymph nodes seen along the level one to level three all measuring le ss than 8 mm in short axis diameter which are physiologic in nature. Carotids arteries: No significant stenosis or dissection. Mild plaque at bulb Vertebral arteries: No significant stenosis or dissection. Plaque at bulb. Soft tissues: The floor the mouth is unremarkable. The tonsils and adenoids are unremarkable. The epiglottis and vocal cords are within normal limits. Lungs: Images through both lung apices are unremarkable. Bones: Advanced degenerative changes of the cervical spine. Visualized portions of the brain and orbits: Unremarkable. Sinuses and mastoids: Mucous retention cyst in left maxillary sinus. IMPRESSION: Resection of the right parotid gland. No evidence of recurrence mass or adenopathy. RADIATION DOSE DELIVERED: Total DLP DATA REPOSITORY: All CT scans at this facility are submitted to the National Radiology Data Registry (NRDR) Dose Index Registry (DIR) with the [employer] ([employer]). RADIATION OPTIMIZATION: All CT scans at this facility use at least one of these dose optimization te chniques: automated exposure control; mA and/or kV adjustment per patient size (includes targeted exa ms where dose is matched to clinical indication); or iterative reconstruction.
[2023-07-21 13:46] LABS: CREATININE 0.9 mg/dL (0.70-1.30); Estimated GFR 87.42 (mL/min/1.73m2)
[2023-07-21] MEDS: Omnipaque 350 MG/ML 100 ML BTL IJ (14:00)
[2023-07-21] MEDS: Normal Saline - Diluent 50 ML VIAL IJ (14:01)
== END ==
PROVIDERS: PCP Family Medicine; Visit Provider Otolaryngology
DX: C07 Malignant neoplasm of parotid gland (principal)
CPT/HCPCS: 70491; 82565; J3490

== ENCOUNTER 2023-12-25 09:33 | Outpatient (CLI) | payer MEDICARE, BC, SELFPAY ==
--- NOTE | 2023-12-25 09:15 | DI.RAD_ITS ---
Exam(s) XR KNEE RT 2V AP,LAT EXAM: XR KNEE RT 2V AP,LAT INDICATION: annual f/u R TKA. COMPARISON: CR XR KNEE RT 2V AP,LAT from 12/05/2022 TECHNIQUE: 2D digital imaging was performed. Two views. FINDINGS: There has been no change in the alignment of the total knee prosthesis. No abnormal surrounding luce ncies. No joint effusion. Impression: Stable appearance of total knee prosthesis DATA REPOSITORY: RADIATION DOSE DELIVERED:
== END 2023-12-25 09:34 | disposition home or self-care (01) ==
LOC: DIORS 09:33
PROVIDERS: PCP Family Medicine; Referring Provider Family Medicine; Visit Provider Physician Assistant
DX: Z47.1 Aftercare following joint replacement surgery (principal); Z96.651 Presence of right artificial knee joint
CPT/HCPCS: 99213; 73560

== ENCOUNTER 2024-04-08 16:14 | Outpatient (CLI) | payer MEDICARE, BC, SELFPAY ==
[2024-04-08 15:44] LABS: Anion Gap 8.9 mmol/L (3-11); BUN 19 mg/dL (7-18); CO2 27.1 mmol/L (21.0-32.0); Calcium 8.7 mg/dL (8.5-10.1); Chloride 106 mmol/L (98-107); Estimated GFR 77.04 (mL/min/1.73m2); Glucose 142 mg/dL (74-106); Potassium 3.7 mmol/L (3.5-5.1); Sodium 142 mmol/L (136-145)
== END 2024-04-08 16:15 | disposition home or self-care (01) ==
LOC: LBO 16:15
PROVIDERS: PCP Family Medicine; Visit Provider Nurse Practitioner Family
DX: R97.20 Elevated prostate specific antigen [PSA] (principal); I10 Essential (primary) hypertension
CPT/HCPCS: 36415; 80048; 84154

== ENCOUNTER → 2024-08-15 08:55 | Outpatient (BNVA) | payer MEDICARE, BC, SELFPAY | PROVIDERS: PCP Family Medicine; Referring Provider Family Medicine; Visit Provider Nurse Practitioner Gerontology | DX: N40.1 Benign prostatic hyperplasia with lower urinary tract symptoms (principal); N13.8 Other obstructive and reflux uropathy | CPT/HCPCS: 51798; 99214 ==

== ENCOUNTER 2025-06-01 14:29 | Outpatient (CLI) | payer MEDICARE, BC, SELFPAY ==
--- NOTE | 2025-06-01 11:30 | DI.RAD_ITS ---
Exam(s) XR HIP RT COMPLETE AP PELVIS EXAM: XR HIP RT COMPLETE AP PELVIS CLINICAL HISTORY: R knee/hip pain. TECHNIQUE: 2D digital imaging was performed. Two views COMPARISON: No exams were available for comparison FINDINGS: BONES: No acute fracture is present. No bony destructive lesion is seen. JOINTS: No dislocation present. There is mild bilateral hip joint space narrowing and mild periarticular spurring. SOFT TISSUE: Normal. IMPRESSION: Mild degenerative changes of both hips. DATA REPOSITORY: RADIATION DOSE DELIVERED:
== END 2025-06-01 14:30 | disposition home or self-care (01) ==
LOC: DIORS 14:30
PROVIDERS: PCP Family Medicine; Referring Provider Family Medicine; Visit Provider Physician Assistant
DX: M16.11 Unilateral primary osteoarthritis, right hip (principal); M25.551 Pain in right hip; M25.561 Pain in right knee
CPT/HCPCS: 20611; J1010; 73502

== ENCOUNTER → 2025-07-27 09:24 | Outpatient (BNVA) | payer MEDICARE, BC, SELFPAY | PROVIDERS: PCP Family Medicine; Referring Provider Family Medicine; Visit Provider Student in an Organized Health Care Education/Training Program | DX: M16.11 Unilateral primary osteoarthritis, right hip (principal) | CPT/HCPCS: 99214 ==